=== PATIENT | male | born 1995 | race Caucasian/White ===

== ENCOUNTER 2019-12-22 00:45 | Emergency (ER) | payer OTHER ==
[~2019-12-22] VITALS: Ht 165.1 cm; Wt 70.0 kg
[2019-12-22 00:46] VITALS: BP 138/86
== END 2019-12-22 01:45 ==
LOC: ED 01:39
DX: Z20.89 Contact with and (suspected) exposure to other communicable diseases (principal)
CPT/HCPCS: 36415; 86705; 86706; 86803; 87340; 87806; 99283; G0475